=== PATIENT | male | born 1995 | race Caucasian/White ===

== ENCOUNTER 2018-03-18 19:06 | Emergency (ER) | payer OTHER ==
[~2018-03-18] VITALS: Ht 180.3 cm; Wt 81.3 kg
[2018-03-18] MEDS ORDERED: SODIUM CHLORIDE 0.9% 1000ML 1,000 ML IV STA (19:13)
[2018-03-18 19:15] VITALS: Ht 180.3 cm; Wt 81.3 kg
[2018-03-18 19:52] LABS: CALCIUM 8.2 mg/dl (8.5-10.1); POTASSIUM 2.8 mmol/L (3.5-5.1)
--- NOTE | 2018-03-18 23:04 | EMERGENCY ROOM VISIT NOTE ---
History Report prepared by Heikeibanuj: Mariaelena Higgins Under the Supervision of: Dr. Sanford Duran M.D. First contact with patient: 19:09 Chief Complaint: ALCOHOL OVERDOSE Stated Complaint: ALCOHOL History of Present Illness The patient is a 22 year old male who presents to the Emergency Room with altered mental status from presumed alcohol intoxication. Per EMS, the patient had been drinking beer for most of the day. His friends reportedly found him lying on his bed and were not able to wake him up so they called EMS. The patient is not believed to have experienced any trauma or head injury. HPI limited secondary to altered mental status. Source of History: EMS History Limited By: AMS Onset: just prior to arrival Position: other (generalized) Quality: other (alcohol overdose) Timing: other (episode) Review of Systems Unable to obtain due to altered mental status. Past Medical & Surgical Medical Problems: (1) No significant past medical history Family History No pertinent family history Social History Alcohol Use: other (yes) Occupation Status: [employer] student Physical Exam Vital Signs Date Time Temp Pulse Resp B/P (MAP) Pulse Ox O2 Delivery O2 Flow Rate FiO2 03/18/18 22:52 102 14 94/49 94 Room Air 03/18/18 21:59 80 12 94/49 99 Room Air 03/18/18 21:11 74 15 96/48 96 Room Air 03/18/18 20:15 98 16 98 Room Air 03/18/18 19:15 35.4 80 15 118/62 95 Room Air Physical Exam The physical exam is limited due to the patient's condition. Constitutional: Vital signs reviewed. Eyes: Pupils are equal round reactive to light. Conjunctiva are noninjected. ENT: Mucous membranes are dry. Neck supple without meningeal signs. Respiratory: Clear to auscultation bilaterally. Breath sounds are equal bilaterally. Cardiovascular: Regular rate and rhythm. No murmurs, rubs or gallops. GI: Soft, nondistended and nontender. Bowel sounds are present. Musculoskeletal: No peripheral edema. No evidence of trauma. Integumentary: No rashes, petechiae or purpura. Neurological: The patient is somnolent but arousable. No focal deficits. Psychiatric: Unable to assess. Medical Decision & Procedures Laboratory Results 03/18/18 19:17 Test 03/18/18 19:17 Anion Gap 11.0 mmol/L (3-11) Est Creatinine Clear Calc Drug Dose 124.4 ml/min Estimated GFR () 124.1 Estimated GFR (Non- 107.1 BUN/Creatinine Ratio 13.9 (10-20) Calcium Level 8.2 mg/dl (8.5-10.1) Ethyl Alcohol mg/dL 299.0 mg/dl (0-3) Laboratory results as reviewed by me. Medications Administered Medications (Trade) Dose Ordered Sig/Annmarie Route Start Time Stop Time Status Last Admin Dose Admin Sodium Chloride 1,000 ml @ 999 mls/hr Q1H1M STAT IV 03/18/18 19:13 03/18/18 20:13 DC 03/18/18 19:00 999 MLS/HR ED Course 1912: The patient was evaluated in room B4B. A complete history and physical exam was performed. 2157: I checked on the patient and the patient is sleeping. Medical Decision This is a 22-year-old male who presents with altered mental status. I did perform a limited focused review of portions of the patient's old chart on the electronic medical record. The patient has had no prior visits to this hospital. Additional history was obtained from EMS due to the patient's condition. Differential diagnosis: Etiologies such as alcohol intoxication, hypoglycemia, electrolyte abnormality, illicit drug use as well as others were considered. ER treatment provided: The patient was placed on a continuous night monitor and pulse oximetry. Diagnostic studies: I did order and review the patient's lab work including an alcohol level and PRP. His serum alcohol is 299 Disposition: On reassessment the patient continues to be somnolent. He will be watched further in the emergency department and reassessed once he is more sober. The patient was signed out to Dr. Melani Bhakta. Medication Reconcilliation Current Medication List: was personally reviewed by me Blood Pressure Screening Patient's blood pressure: Normal blood pressure Impression Primary Impression: Alcohol use with intoxication Scribe Attestation The scribe's documentation has been prepared under my direct and personally reviewed by me in its entirety. I confirm that the note above accurately reflects all work, treatment, procedures, and medical decision making performed by me. Departure Information Dispostion Still a Patient Patient Instructions My [facility]
[2018-03-18 23:37] VITALS: TEMP 36.7
[2018-03-19 00:06] VITALS: BP 143/83; PULSE 69; O2SAT 98
--- NOTE | 2018-03-19 00:10 | EMERGENCY ROOM VISIT NOTE ---
ED Visit Note First contact with patient: 00:09 This case was signed out to me at change of shift awaiting sobriety. The patient is fully awake at this time. He has no recollection of coming to the hospital. The last thing he remembers to swimming at his apartment [place]. I did spend some time talking to him about the hazards of such excessive alcohol use. In fact, the patient's O2 saturation for EMS was only 85 % as he was laying in a pool of vomit. I reviewed his LYLE with him and encouraged him to avoid such excessive alcohol use in the future.
== END 2018-03-19 00:20 | disposition home or self-care (01) ==
LOC: C.EDB 19:09
DX: F10.929 Alcohol use, unspecified with intoxication, unspecified (principal); Y90.8 Blood alcohol level of 240 mg/100 ml or more